=== PATIENT | female | born 1995 | race African-American/Black ===

== ENCOUNTER 2016-12-02 22:39 | Emergency (ER) | payer SELFPAY ==
[~2016-12-02] VITALS: Ht 160 cm; Wt 109.0 kg
[2016-12-02 23:18] VITALS: BP 131/47
== END 2016-12-03 01:15 | disposition home or self-care (01) ==
LOC: ER 22:39
DX: S93.509A Unspecified sprain of unspecified toe(s), initial encounter (principal); X58.XXXA Exposure to other specified factors, initial encounter; Y93.89 Activity, other specified; Y99.8 Other external cause status; Y92.89 Other specified places as the place of occurrence of the external cause; Z98.890 Other specified postprocedural states
CPT/HCPCS: 81025; 99282

== ENCOUNTER 2017-06-13 22:07 | Emergency (ER) | payer OTHER ==
[~2017-06-13] VITALS: Ht 154.9 cm; Wt 109.0 kg
[2017-06-14] MEDS ORDERED: IBUPROFEN 600MG TABLET PO ONE (05:15)
[2017-06-14 06:39] VITALS: BP 124/62
== END 2017-06-14 06:41 | disposition home or self-care (01) ==
LOC: ER 22:07
DX: M54.5 Low back pain (principal)
CPT/HCPCS: 72100; 81025; 99284

== ENCOUNTER 2019-08-28 22:50 | Emergency (ER) | payer MEDICAID, OTHER ==
[~2019-08-28] VITALS: Ht 152.4 cm; Wt 108.0 kg
[2019-08-29 01:31] LABS: CLARITY URINE CLEAR (CLEAR); COLOR URINE YELLOW (YELLOW); KETONES URINE NEGATIVE (NEGATIVE); LEUKOCYTE ESTERASE URINE NEGATIVE (NEGATIVE); NITRITE URINE NEGATIVE (NEGATIVE); OCCULT BLOOD URINE TRACE (NEGATIVE); PH URINE 6.5 (4.5-8.0); PROTEIN URINE NEGATIVE (NEGATIVE); UROBILINOGEN URINE 0.2 E.U./dL (0.2-1.0)
[2019-08-29 01:53] LABS: UCG SCREEN NEGATIVE
[2019-08-29 02:27] VITALS: BP 121/69
== END 2019-08-29 02:27 | disposition home or self-care (01) ==
LOC: ER 23:41
DX: J40 Bronchitis, not specified as acute or chronic (principal); F12.10 Cannabis abuse, uncomplicated; Z98.890 Other specified postprocedural states
CPT/HCPCS: 71046; 81003; 81025; 99284

== ENCOUNTER 2019-12-04 08:52 | Emergency (ER) | payer MEDICAID ==
[~2019-12-04] VITALS: Ht 154.9 cm; Wt 102.5 kg
[2019-12-04] MEDS ORDERED: IBUPROFEN 600MG TABLET PO ONE (10:15)
[2019-12-04 11:32] VITALS: BP 122/91
== END 2019-12-04 12:39 | disposition home or self-care (01) ==
LOC: ER 08:52
DX: S39.012A Strain of muscle, fascia and tendon of lower back, initial encounter (principal); S16.1XXA Strain of muscle, fascia and tendon at neck level, initial encounter; S40.022A Contusion of left upper arm, initial encounter; F12.10 Cannabis abuse, uncomplicated; Z98.890 Other specified postprocedural states; V43.52XA Car driver injured in collision with other type car in traffic accident, initial encounter; W22.11XA Striking against or struck by driver side automobile airbag, initial encounter; Y93.89 Activity, other specified; Y92.488 Other paved roadways as the place of occurrence of the external cause
CPT/HCPCS: 72040; 72100; 73030; 73060; 73552; 81025; 99284